=== PATIENT | male | born 1955 | race Caucasian/White ===

== ENCOUNTER 2016-11-23 13:31 | Day surgery (SDC) | payer BC ==
[~2016-11-23 13:31] MED LIST: CILO100T PO; LIPI20TA PO; WELL150T PO
[2016-11-23 13:49] VITALS: BP 138/84; PULSE 99; RESP 20; TEMP 98.7; O2SAT 96
[2016-11-23] MEDS ORDERED: HYDR12.57 PO (13:51)
[2016-11-23] MEDS ORDERED: CILO100T PO (13:51)
[2016-11-23] MEDS ORDERED: ASPI81CH37 CHEW (13:51)
[2016-11-23] MEDS ORDERED: LOSA100T PO (13:51)
[2016-11-23] MEDS ORDERED: LIPI20TA PO (13:51)
--- NOTE | 2016-11-24 08:37 | RADRPT ---
EXAM DATE/TIME: 11/23/2016 13:55 [facility] COMPARISON : No previous studies available for comparison. INDICATIONS : Consultation to eval and tx aortic abdominal aneurysm. Patient is well known to me as I previously tr eated him for peripheral vascular disease. OBJECTIVE: Temperature: 98.7 Heart Rate: 99 Blood Pressure: 138/84 Respiratory: 20 Oximetry: 96 PNEUMONIA VACCINE: NO HISTORY OF PRESENT ILLNESS: ? PAST MEDICAL HISTORY : 1. Peripheral vascular disease. 2. Hypertension. 3. Diverticulosis. PAST SURGICAL HISTORY : 1. TURP 2. RIGHT ILIAC STENT 3. LEFT ILIAC ANGIOGRAM SOCIAL HISTORY : ALLERGIES: 1. Penicillin MEDICATIONS: 1. [id number] mg q.d. 2. lipitor 20 mg q.h.s. 3. pletal 100 mg b.i.d. 4. losartan/hctz 250/12.5 mg q.d. PHYSICAL EXAMINATION: 61-year-old gentleman in no acute distress. IMAGING STUDIES: Prior CTA was reviewed demonstrating the infrarenal abdominal aneurysm which appears to be amenable t o endovascular repair. ASSESSMENT: Infrarenal abdominal aneurysm larger than 5 cm in diameter with a configuration favorable for endovas cular repair. PLAN: Endovascular repair of infrarenal abdominal aortic aneurysm. Patient requests a mid December timefram edson. TIME SPENT: 30 minutes Bayron Geiger MD on November 24, 2016 at 8:33 Board Certified Radiologist. This report was verified electronically.
== END 2016-11-23 14:28 | disposition home or self-care (01) ==
LOC: HROP 13:31 → HRIP 13:33 → HROP 14:28
PROVIDERS: ATTEND Family Medicine
DX: I71.4 Abdominal aortic aneurysm, without rupture (principal); I10 Essential (primary) hypertension; I73.9 Peripheral vascular disease, unspecified; Z88.0 Allergy status to penicillin

== ENCOUNTER 2016-12-22 10:59 | Inpatient (IN) | payer BC ==
[~2016-12-22] VITALS: Ht 185.4 cm; Wt 107.0 kg
[2016-12-22] VITALS (8 sets, daily range): BP systolic 99–149; BP diastolic 58–85; PULSE 64–95; RESP 16–20; TEMP 97.4–98.2; O2SAT 93–96
[~2016-12-22 10:59] MED LIST changes: +ASPI81CH6 CHEW; +HYDR12.57 PO; +LOSA100T PO; -WELL150T PO
[2016-12-22] MEDS ORDERED: IODIXANOL 320 MG/ML 50 ML VIAL (for RAD SPEC) I-ARTERIAL ONE (11:00)
[2016-12-22] MEDS ORDERED: CHLORHEXIDINE GLUCONATE 2 % 1 PACK (2 CLOTHS) TOPICAL PRN (11:30)
[2016-12-22] MEDS ORDERED: SODIUM CHLORIDE 0.9% 1000 ML IV SCH (11:30)
[2016-12-22] MEDS ORDERED: METOPROLOL TARTRATE 25 MG TAB PO PRN (11:30)
[2016-12-22] MEDS ORDERED: SODIUM CHLORID 0.9% 500 ML IV PRN (11:30)
[2016-12-22] MEDS ORDERED: LACTATED RINGER'S 1000 ML IV PRN (11:30)
[2016-12-22] MEDS ORDERED: POVIDONE IODINE 5% (ANTISEPSIS KIT) 4 APPLICATIONS EACH NARE PRN (11:30)
[2016-12-22] MEDS ORDERED: INSULIN HUMAN REGULAR 1,000 UNITS/10 ML VIAL SQ PRN (11:30)
[2016-12-22 11:56] LABS: AUTOMATED NEUTROPHIL # 5.3 TH/MM3 (1.8-7.7); BASOPHIL # 0.1 TH/MM3 (0-0.2); BASOPHIL % 0.7 % (0.0-2.0); EOSINOPHIL # 0.1 TH/MM3 (0-0.4); EOSINOPHIL % 1.4 % (0.0-4.0); HEMATOCRIT 48.9 % (39.0-51.0); HEMO FLAGS DIFF FINAL; LYMPH % 32.5 % (9.0-44.0); LYMPHOCYTE # 3.1 TH/MM3 (1.0-4.8); MEAN CELL VOLUME 91.8 FL (80.0-100.0); MEAN CORPUSCULAR HEMOGLOBIN 31.3 PG (27.0-34.0); MEAN CORPUSCULAR HGB CONC 34.1 % (32.0-36.0); MONO % 9.3 % (0.0-8.0); NEUT % 56.1 % (16.0-70.0); PLATELET COUNT 284 TH/MM3 (150-450); RED BLOOD COUNT 5.33 MIL/MM3 (4.50-5.90); RED CELL DISTRIBUTION WIDTH 14.5 % (11.6-17.2); WHITE BLOOD COUNT 9.5 TH/MM3 (4.0-11.0)
[2016-12-22 12:02] LABS: APTT (PATIENT) 28.5 SEC (24.3-30.1); PROTHROMBIN TIME - PATIENT 11.1 SEC (9.8-11.6)
[2016-12-22] MEDS ORDERED: VANCOMYCIN HCL 1000 MG ON-CALL/NS 250 ML IV SCH ×2 (12:15)
[2016-12-22 12:38] LABS: BICARBONATE 29.2 MEQ/L (21.0-32.0)
[2016-12-22] MEDS ORDERED: HEPARIN SODIUM - IV 10,000 UNITS/10 ML VIAL ONE (14:44)
[2016-12-22] MEDS ORDERED: ACETAMINOPHEN 325 MG TAB PO PRN (15:00)
[2016-12-22] MEDS ORDERED: oxyCODONE/ACETAMINOPHEN 5 MG/325 MG TAB PO PRN (15:00)
--- NOTE | 2016-12-22 15:03 | PD.RAD ---
Post Procedure Progress Note Pre Procedure Diagnosis: (1) AAA (abdominal aortic aneurysm) without rupture Post Procedure Diagnosis: (1) AAA (abdominal aortic aneurysm) without rupture Procedure Date: Dec 22, 2016 Supervising Radiologist: Bayron Geiger Assisting Radiologist: Other (Dr. Dheeraj Kaye -Vascular Surgery) Proceduralist/Assist: Pernell Hagen, RT(R), Meena Escobar RT(R)(CV), Kodak Gonzalez RT(R) Anesthesia: General Plan of Activity Patient to Unit: PACU Patient Condition: Good See PACS Report for procedural detail/treatment Vascular-Arterial Procedure Procedure 1 Procedure Site: Abdominal (AAA) Procedure(s): Endovascular AAA Repair Access Access Site(s): Right Femoral Artery, Left Femoral Artery Closure Site(s): Right vascular closure device, Left vascular closure device Bayron Geiger MD Dec 22, 2016 15:03
[2016-12-22] MEDS ORDERED: *morphine SULFATE 8 MG/ML PERIprocedure ONLY ONE (15:11)
--- NOTE | 2016-12-22 15:34 | RADRPT ---
EXAM DATE/TIME: 12/22/2016 12:23 [facility] COMPARISON: No previous studies available for comparison. INDICATIONS : Patient with hx of AAA. MEDICAL HISTORY : 1. HTN 2. PAD 3.AAA 4. Diverticulitis SURGICAL HISTORY : 1. TURP 2. rt iliac stent 3. Lt iliac stent ENCOUNTER: Initial ACUITY: >1 year PAIN SCORE: 0/10 FLUORO TIME: 20.3 minutes IMAGE SERIES: 12 ACCESS SITE: Bilateral Femoral artery CONTRAST: 100 cc Visipaque (iodixanol) CO-SURGEON: Dr. Dheeraj Kaye-Vascular surgery Prophylactic antibiotics were administered with appropriate pre-procedure timing. DEVICE(S): 1.) Left Abdominal aorta 28 x 14 x103 abdominal trunk ipsilateral stent graft (main body) medtronic 2.) Left common iliac artery 16 x13 x124 ipsilateral stent graft medtronic 3.) Right common iliac artery 16 x 16 x 124 contralateral iliac stent graft medtronic Anesthesia and pain control was provided by the Anesthesia department. PROCEDURE : 1. Ultrasound-guidance for bilateral common femoral arterial access. 2. Nonselective bilateral aortic catheterization. 3. Fluoroscopically guided endovascular aortic aneurysm repair. 4. Radiologic supervision and interpretation for Endovascular AAA repair. 5. Bilateral common femoral arteriography prior to closure device placement. 6. Bilateral common femoral arteriotomy closure. Perclose x2 bilaterally The patient was placed supine on the angiography table. General endotracheal anesthesia was administ ered by department of anesthesia representatives. The groins were prepped in sterile fashion. Full sterile technique was used, including cap, mask, sterile gloves and gown and a large sterile sheet. Hand hygiene and 2% chlorhexidine and/or betadine/alcohol prep was utilized per protocol for cutaneou s antisepsis. Sterile gel and sterile probe cover were utilized for ultrasound guidance. Dr. Geiger operated from the left and Dr. Kaye was on the right side of the patient. Angiograph of both femoral arteries was performed to evaluate for closure device placement. 7 Taiwanese sheaths were placed. Stiff 0.035 inch guidewires were introduced and positioned in the descending t horacic aorta and their position marked on the procedure table. A marking Omni flush catheter was introduced from the right and positioned in the upper abdominal aor ta. From the right, the prescribed main body component was inserted and manipulated without difficul ty up to the level the renal arteries. Magnification subtraction arteriography was then performed to les the position of the lowest renal artery. The trunk device was deployed by Dr. Geiger without d ifficulty. The Omni Flush catheter was then brought down into the distal abdominal aorta and with aid of an angl ed Glidewire the catheter was directed through the contralateral gate region by Dr. Kaye. Retro grade sheath arteriography was performed to les the gate and select a contralateral iliac component. The prescribed length contralateral iliac device was selected, inserted and deployed by Dr. Sol garcia without difficulty. The prescribed extension component was 16 x 16 x 124. The deployment catheter was then removed and replaced with a 12 Taiwanese side-port sheath. Finally, the ipsilateral extension measuring 16 x 13 x 24 was deployed through the ipsilateral left-s ided [address] Geiger The trunk, gate connections and iliac limbs were then dilated utilizing the prescribed angioplasty ba lloons by Dr. Geiger and Dr. Kaye. Completion arteriography was performed revealing excellent a ngiographic result with wide patency of the trunk and iliac limbs. Excellent preservation of flow in the renal arteries and hypogastric was noted. The groin sheaths were removed and arteriotomy closed with the prescribed sutures and hemostasis was augmented with brief manual compression utilizing hemostasis patches. The patient tolerated the proc edure well and was taken to the recovery area in stable condition. CONCLUSION: Uncomplicated endograft placement for abdominal aortic aneurysm. Bayron Geiger MD on December 22, 2016 at 15:20 Board Certified Radiologist. This report was verified electronically.
[2016-12-22] MEDS ORDERED: DO NOT ADM ANY ANTICOAGULANT DRUGS PRN (15:45)
--- NOTE | 2016-12-22 18:15 | EKG ---
Date Performed: 12/22/2016 Time Performed: 11:34:53 PTAGE: 61 years EKG: Sinus rhythm INCOMPLETE RIGHT BUNDLE BRANCH BLOCK BORDERLINE ECG NO PREVIOUS TRACING DOCTOR: Janelle Win Interpretating Date/Time 12/22/2016 18:15:17
--- NOTE | 2016-12-22 19:17 | PD.CONS ---
[facility] By Primary Care Physician Marbin Mcgill D.O. Diagnoses: History of Present Illness hx from patient and review of medical records. Patient was admitted and interventional radiology post procedure for his AAA repair. He had undergone this AAA repair today December 22, 2016. Patient is doing well postprocedure and denies any pain or bleeding. He is currently at bed rest 6 hours postprocedure. pt also denies any recent fever/ nausea/ vomiting/ diarrhea/ abdominal pains/ chest pains denies syncope denies blood in stool or urine Review of Systems Except as stated in HPI: all other systems reviewed are Neg Past Family Social History Allergies: Coded Allergies: penicillin G (Unverified Allergy, Unknown, 12/22/16) Past Medical History htn borderline dm pad- right iliac stent ; left iliac angioplasty infrarenal AAA 5.3cm bladder tumor - s/p resection , turp, no chemo , no radiation- about 3 yrs ago colon polyps diverticulosis Past Surgical History iliac artery stents and angioplasties turp aaa repair bladder tumor resection ' colonoscopy dental implants Family History mom allyson dad colostomy maybe from diverticulitis, not sure; also has aaa Social History smokes a pack a day, no etoh abuse no drugs 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 Physical Exam Vital Signs Vital Signs Date Time Temp Pulse Resp B/P (MAP) Pulse Ox O2 Delivery O2 Flow Rate FiO2 12/22/16 18:00 68 12/22/16 17:00 64 12/22/16 16:00 66 12/22/16 16:00 72 16 117/65 (82) 98 Nasal Cannula 2 12/22/16 15:58 97.4 95 16 99/58 (72) 95 12/22/16 15:58 95 Nasal Cannula 2.00 12/22/16 15:45 69 16 112/62 (79) 97 Nasal Cannula 2 12/22/16 15:30 72 16 95/52 (66) 99 Nasal Cannula 2 12/22/16 15:15 67 16 112/62 (79) 98 Nasal Cannula 2 12/22/16 15:05 97.4 73 16 99/56 (70) 99 Nasal Cannula 2 12/22/16 11:20 96 Room Air 12/22/16 11:17 98.2 95 20 149/85 (106) 96 Physical Exam GENERAL: This is a well-nourished, well-developed patient, in no apparent distress. SKIN: No rashes, ecchymoses or lesions. Cool and dry. HEAD: Atraumatic. Normocephalic. No temporal or scalp tenderness. EYES: No scleral icterus. No injection or drainage. ENT: Nose without bleeding, purulent drainage or septal hematoma. Airway patent. NECK: Trachea midline. No JVD CARDIOVASCULAR: Regular rate and rhythm without murmurs, gallops, or rubs. RESPIRATORY: Clear to auscultation. Breath sounds equal bilaterally. No wheezes , rales, or rhonchi. GASTROINTESTINAL: Abdomen soft, non-tender, nondistended. No guarding. right groin procedural site clean, no active bleeding at dressing area, palpable dorsalis pedis pulse though faint MUSCULOSKELETAL: Extremities without clubbing, cyanosis, or edema. No calf tenderness. NEUROLOGICAL: Awake and alert. Motor and sensory grossly within normal limits. Normal speech. Laboratory Laboratory Tests Test 12/22/16 11:30 White Blood Count 9.5 Red Blood Count 5.33 Hemoglobin 16.7 Hematocrit 48.9 Mean Corpuscular Volume 91.8 Mean Corpuscular Hemoglobin 31.3 Mean Corpuscular Hemoglobin Concent 34.1 Red Cell Distribution Width 14.5 Platelet Count 284 Mean Platelet Volume 7.5 Neutrophils (%) (Auto) 56.1 Lymphocytes (%) (Auto) 32.5 Monocytes (%) (Auto) 9.3 Eosinophils (%) (Auto) 1.4 Basophils (%) (Auto) 0.7 Neutrophils # (Auto) 5.3 Lymphocytes # (Auto) 3.1 Monocytes # (Auto) 0.9 Eosinophils # (Auto) 0.1 Basophils # (Auto) 0.1 CBC Comment DIFF FINAL Differential Comment Prothrombin Time 11.1 Prothromb Time International Ratio 1.0 Activated Partial Thromboplast Time 28.5 Blood Urea Nitrogen 17 Creatinine 1.12 Random Glucose 94 Calcium Level 9.2 Sodium Level 136 Potassium Level 4.0 Chloride Level 100 Carbon Dioxide Level 29.2 Anion Gap 7 Estimat Glomerular Filtration Rate 67 Result Diagram: 12/22/16 1130 12/22/16 1130 Imaging Last 48 hours Impressions Aortography 12/22/16 0000 Signed Impressions: Service Date/Time: Thursday, December 22, 2016 12:23 - CONCLUSION: Uncomplicated endograft placement for abdominal aortic aneurysm. Bayron Geiger MD Assessment and Plan Assessment and Plan Impression: AAA repair by IR htn borderline dm pad- right iliac stent ; left iliac angioplasty infrarenal AAA 5.3cm bladder tumor - s/p resection , turp, no chemo , no radiation- about 3 yrs ago colon polyps diverticulosis Plan: pt is doing well post procedure will resume home meds pt has losartan/ hctz 50/12.5mg bottle with him- will resume hold asa and cilostazole until ok by IR - likely should resume by am if no objection call [facility] to [facility] [employer] rec one more time otherwise doing well, will follow dvt prophylaxis with ambulation once 6hrs is up Discussed Condition With patient, nursing staff Deandre Morris MD Dec 22, 2016 19:17
[2016-12-22] MEDS ORDERED: ZOLPIDEM TARTRATE 5 MG TAB PO ONE (19:30)
[2016-12-22] MEDS ORDERED: ENALAPRILAT 2.5 MG/2 ML VIAL IV PUSH PRN (19:30)
[2016-12-22] MEDS ORDERED: ATORVASTATIN 20 MG TAB PO SCH (21:00)
[2016-12-23] VITALS (7 sets, daily range): BP systolic 108–119; BP diastolic 55–59; PULSE 64–87; RESP 16–17; TEMP 97.7–98; O2SAT 95–96
[2016-12-23] MEDS ORDERED: CALCIUM CARBONATE 500 MG CHEWABLE TAB CHEW PRN (00:45)
--- NOTE | 2016-12-23 08:37 | PD.RAD ---
Radiology Note Pt. without complaint this am. Groins soft and non-tender. Have f/u scheduled in [facility] for next tue, 12/29/16. OK to D/C from IR standpoint. Thanks for helping with the care of Mr. Garcia overnight! Bayron Geiger MD Dec 23, 2016 08:37
[2016-12-23] MEDS ORDERED: HYDROCHLOROTHIAZIDE 12.5 MG CAP PO SCH (09:00)
[2016-12-23] MEDS ORDERED: LOSARTAN 50 MG TAB PO SCH (09:00)
--- NOTE | 2016-12-23 09:57 | HHI.DCPOC ---
Discharge Care Plan Diagnosis: (1) AAA (abdominal aortic aneurysm) without rupture Goals to Promote Your Health * To prevent worsening of your condition and complications * To maintain your health at the optimal level Directions to Meet Your Goals Take your medications as prescribed Follow your dietary instruction Follow activity as directed Keep your appointments as scheduled Take your immunizations and boosters as scheduled If your symptoms worsen call your PCP, if no PCP go to Urgent Care Center or Emergency Room Smoking is Dangerous to Your Health. Avoid second hand smoke Call the 24-hour hour crisis hotline for domestic abuse at Barbara Patricia MD Dec 23, 2016 09:57
--- NOTE | 2016-12-23 10:01 | HHI.DS ---
Discharge Summary Admission Date Dec 22, 2016 at 20:15 Discharge Date: Dec 23, 2016 Admitting Diagnosis aaa (1) AAA (abdominal aortic aneurysm) without rupture ICD Code: I71.4 - Abdominal aortic aneurysm, without rupture Procedures aaa repair Brief History - From Admission hx from patient and review of medical records. Patient was admitted and interventional radiology post procedure for his AAA repair. He had undergone this AAA repair today December 22, 2016. Patient is doing well postprocedure and denies any pain or bleeding. He is currently at bed rest 6 hours postprocedure. pt also denies any recent fever/ nausea/ vomiting/ diarrhea/ abdominal pains/ chest pains denies syncope denies blood in stool or urine CBC/BMP: 12/22/16 1130 12/22/16 1130 Significant Findings Laboratory Tests Test 12/22/16 11:30 Monocytes (%) (Auto) 9.3 % (0.0-8.0) Estimat Glomerular Filtration Rate 67 ML/MIN (>89) Imaging Last Impressions Aortography 12/22/16 0000 Signed Impressions: Service Date/Time: Thursday, December 22, 2016 12:23 - CONCLUSION: Uncomplicated endograft placement for abdominal aortic aneurysm. Bayron Geiger MD PE at Discharge GENERAL: This is a well-nourished, well-developed patient, in no apparent distress. CARDIOVASCULAR: Regular rate and rhythm without murmurs, gallops, or rubs. RESPIRATORY: Clear to auscultation. Breath sounds equal bilaterally. No wheezes , rales, or rhonchi. GASTROINTESTINAL: Abdomen soft, non-tender, nondistended. Normal active bowel sounds MUSCULOSKELETAL: Extremities without clubbing, cyanosis, or edema. NEURO: Alert & Oriented x4 to person, place, time, situation. Moves all ext x4 Pt update on day of discharge doing well, d/c plans discussed with patient and RN no events no new complaints Hospital Course patient admitted to follow up after AAA repair observed overnight without incident Pt Condition on Discharge: Good Discharge Disposition: Discharge Home Discharge Time: <= 30 minutes Discharge Instructions DIET: Follow Instructions for: As Tolerated, No Restrictions Activities you can perform: Regular-No Restrictions Follow up Referrals: Appointment for Follow Up - 12/29/16 @ [email or web address] Continued Medications: Aspirin (Aspirin Low Dose) 81 Mg Chew 81 MG CHEW DAILY, TAB 0 Refills Atorvastatin (Lipitor) 20 Mg Tab 20 MG PO HS for Cholesterol Management, #30 TAB 0 Refills Cilostazol (Cilostazol) 100 Mg Tab 100 MG PO BID for INTERMITTENT CLAUDICATION, TAB 0 Refills Hydrochlorothiazide (Hydrochlorothiazide) 12.5 Mg Cap 12.5 MG PO DAILY, #30 CAP 0 Refills Losartan (Losartan) 100 Mg Tab 250 MG PO DAILY for Blood Pressure Management, #30 TAB 0 Refills Barbara Patricia MD Dec 23, 2016 10:01
== END 2016-12-23 10:15 | disposition home or self-care (01) | DRG 269 ==
LOC: HOR 10:59 → EDSTATUS 11:00 → HRIP 11:03 → HCPC 15:51 → HROP 15:52 → HCPC 20:15
PROVIDERS: ADMIT Hospitalist; ATTEND Hospitalist
PROC: 04V03DZ Restriction of Abdominal Aorta with Intraluminal Device, Percutaneous Approach (ICD-10-PCS; principal; 2016-12-22)
PROC: B41GYZZ Fluoroscopy of Left Lower Extremity Arteries using Other Contrast (ICD-10-PCS; 2016-12-22)
PROC: B41FYZZ Fluoroscopy of Right Lower Extremity Arteries using Other Contrast (ICD-10-PCS; 2016-12-22)
DX: I71.4 Abdominal aortic aneurysm, without rupture (principal); I10 Essential (primary) hypertension; I73.9 Peripheral vascular disease, unspecified; K57.90 Diverticulosis of intestine, part unspecified, without perforation or abscess without bleeding; R73.03 Prediabetes; F17.210 Nicotine dependence, cigarettes, uncomplicated; F12.90 Cannabis use, unspecified, uncomplicated; Z95.828 Presence of other vascular implants and grafts
CPT/HCPCS: 34803; 36200; 75952; 76937; 80048; 85025; 85610; 85730; 93005; C1725; C1751; C1760; C1769; C1887; C1894; J1644; J2270; J3370; J7050; Q9967

== ENCOUNTER 2016-12-29 13:31 | Day surgery (SDC) | payer BC ==
[2016-12-29 13:45] VITALS: BP 127/70; PULSE 80; RESP 20; TEMP 97.6; O2SAT 97
--- NOTE | 2016-12-29 17:20 | RADRPT ---
EXAM DATE/TIME: 12/29/2016 00:00 [facility] COMPARISON : No previous studies available for comparison. INDICATIONS : f/U endo AAA OBJECTIVE: Temperature: 97.6 Heart Rate: 80 Blood Pressure: 127/70 Respiratory: 18 Oximetry: 97 HISTORY OF PRESENT ILLNESS: The patient is one week status post endograft repair of an abdominal aortic aneurysm. The patient rep orts mild discomfort involving the back and lower abdomen. He states this is a 3/10 pain. This began approximately 2 days after the procedure and has improved since his onset. He denies any other proble ms. Patient denies any problems with taking Plavix in the past. Currently he is taking low-dose aspir in. PAST MEDICAL HISTORY : Aneurysm, abdominal. Hypertension. Diverticulitis. Peripheral arterial Disease PAST SURGICAL HISTORY : TURP Rt iliac stent Lft iliac stent SOCIAL HISTORY : Penicillin [id number] mg q.d. Lipitor 20 mg q.d. Cilostazol 100 mg b.i.d. HCTZ 12.5 mg q.d. Losartan 250 mg q.d. PHYSICAL EXAMINATION: General: Patient awake and alert in no acute distress. Abdomen: Nondistended nontender. Groins: Mild superficial ecchymosis involving both groins more pronounced on the left. No underlying hematoma . No erythema or drainage. The access sites are healing nicely. Lower extremities: Bilateral dopplerable dorsalis pedis and posterior tibial pulses. No discoloration involving the lowe r extremities. Mild edema. ASSESSMENT: Patient is doing well status post endograft repair of a AAA. PLAN: Followup with as previously arranged. Prescription given for Plavix. TIME SPENT: <<20 minutes> Devante Whipple Jr., MD on December 29, 2016 at 17:14 Board Certified Radiologist. This report was verified electronically.
== END 2016-12-29 14:15 | disposition home or self-care (01) ==
LOC: HROP 13:31 → HRIP 13:33 → HROP 14:15
PROVIDERS: ATTEND Radiology Body Imaging
DX: I71.3 Abdominal aortic aneurysm, ruptured (principal); I10 Essential (primary) hypertension; I73.9 Peripheral vascular disease, unspecified; K57.92 Diverticulitis of intestine, part unspecified, without perforation or abscess without bleeding